=== PATIENT | male | born 1945 | race Caucasian/White ===

== ENCOUNTER 2017-09-04 14:47 | Inpatient (IN) | payer BC, MEDICARE ==
[2017-09-04] MEDS ORDERED: Sodium Chloride 0.9% 500 ML IV ONE (15:27)
[2017-09-04 15:51] LABS: BASO % 0.7 % (0.0-2.0); EOS % 0.4 % (0.0-4.0); HEMOGLOBIN 15.5 g/dL (12.0-18.0); LYMPH # 1.3 K/uL (1.0-4.3); LYMPH % 20.1 % (20.0-40.0); MEAN CELL VOLUME 87.6 fL (80.0-94.0); MEAN CORPUSCULAR HGB CONC 34.3 g/dL (33.0-37.0); MONO # 0.4 K/uL (0.0-0.8); NEUT # 4.6 K/uL (1.8-7.0); NEUT % 72.8 % (50.0-75.0); RBC 5.16 Mil/uL (4.40-5.90); RED CELL DISTRIBUTION WIDTH 13.7 % (11.5-14.5); WHITE BLOOD COUNT 6.3 K/uL (4.8-10.8)
--- NOTE | 2017-09-04 15:53 | C.PDOC ---
History Of Present Illness 71-year-old male sent to the ER by Dr. Martines for evaluation of substernal chest pain, ongoing for 1 week but worsened today. Pain has been intermittent, and associated with some SOB. He admits to having a non-productive cough for the past 1 week, was seen by PMD and given prednisone and azithromycin with minimal improvement. Patient denies radiation of pain, palpitations, diaphoresis , abdominal pain, nausea, vomiting, or diarrhea. He does admit to lower extremity edema which is chronic, but he feels it is worse today. Time Seen by Provider: 09/04/17 15:07 Chief Complaint (Nursing): Chest Pain History Per: Patient History/Exam Limitations: no limitations Onset/Duration Of Symptoms: Intermittent Episodes Current Symptoms Are (Timing): Still Present Severity: Moderate Quality: "Pain" Past Medical History Reviewed: Historical Data, Nursing Documentation, Vital Signs Vital Signs: Last Vital Signs Temp 97.2 F L 09/06/17 08:06 Pulse 113 H 09/06/17 08:06 Resp 20 09/06/17 08:06 BP 176/83 H 09/06/17 08:06 Pulse Ox 95 09/08/17 14:53 Other Surgeries: Right knee replacement, eye surgery Family History: States: No Known Family Hx - Social History Hx Alcohol Use: No Hx Substance Use: No - Immunization History Hx Tetanus Toxoid Vaccination: No Hx Influenza Vaccination: No Hx Pneumococcal Vaccination: No Review Of Systems Constitutional: Negative for: Fever, Chills Cardiovascular: Positive for: Chest Pain. Negative for: Palpitations Respiratory: Positive for: Cough, Shortness of Breath. Negative for: Sputum Gastrointestinal: Negative for: Nausea, Vomiting, Abdominal Pain, Diarrhea Musculoskeletal: Positive for: Other (LE edema) Skin: Negative for: Rash Neurological: Negative for: Weakness, Numbness, Headache, Dizziness Physical Exam - Physical Exam Appears: Well, Non-toxic, No Acute Distress, Other (Comfortable, speaking in full sentences) Skin: Normal Color, Warm, Dry Head: Normacephalic Eye(s): bilateral: Normal Inspection Oral Mucosa: Moist Neck: Supple Cardiovascular: Rhythm Regular (mildly tachycardic ) Respiratory: Normal Breath Sounds, No Accessory Muscle Use, No Rales, No Rhonchi , No Wheezing Gastrointestinal/Abdominal: Normal Exam, Bowel Sounds, Soft, No Tenderness, No Distention Extremity: Normal ROM, No Tenderness, No Deformity, Swelling (+1 pitting edema of bilateral lower extremities) Pulses: Left Dorsalis Pedis: Normal, Right Dorsalis Pedis: Normal Neurological/Psych: Oriented x3 ED Course And Treatment - Laboratory Results Result Diagrams: 09/05/17 07:43 09/05/17 07:43 ECG: Interpreted By Me, Viewed By Me ECG Rhythm: Atrial Fibrillation (at 113 bpm (RVR), with normal axis, no acute ST or T wave changes) ECG Interpretation: Abnormal O2 Sat by Pulse Oximetry: 95 (RA) Pulse Ox Interpretation: Normal - Other Rad CXR X-Ray: Viewed By Me, Read By Radiologist Interpretation: Accession No. : [id number]. Patient Name / ID : ERIC JONES / [id number]. Exam Date : 09/04/2017 16:07:37 ( Approved ). Study Comment : Sex / Age : M / 71Y. Creator : Fina Rodriguez MD. Dictator : Fina Rodriguez MD. Clinical Secretary : Cobbler Upper : Fina Rodriguez MD. Approver2 : Report Date : 09/04/2017 16:17:40. My Comment : . PROCEDURE: CHEST RADIOGRAPH, 1 VIEW. HISTORY: Chest pain. COMPARISON: None available. FINDINGS: LUNGS: The lungs are well inflated and clear. PLEURA: No pneumothorax or pleural fluid seen. CARDIOVASCULAR: Normal. OSSEOUS STRUCTURES: No significant abnormalities. VISUALIZED UPPER ABDOMEN: Normal. OTHER FINDINGS: None. IMPRESSION: No active pulmonary disease. Progress Note: Blood work, EKG, and Chest x-ray ordered and reviewed. Patient given IV NS bolus. EKG shows atrial fibrillation with RVR, new onset as per patient. Patient given Cardizem 20mg IV - (+) rate control achieved. Lovenox SQ also ordered. 5:19pm- Discussed patient with PMD Dr. Martines, confirms patient has no prior history of A Fib. Patient will be admitted to his service for new-onset atrial fibrillation with RVR. Reassessment Condition: Improved - Physician Consult Information Physician Contacted: Kem Martines Disposition Counseled Patient/Family Regarding: Studies Performed, Diagnosis - Disposition Disposition: HOSPITALIZED Disposition Time: 17:20 Condition: STABLE - Clinical Impression Clinical Impression: Atrial fibrillation with RVR, New onset atrial fibrillation, Chest pain, Dyspnea - Scribe Statement The provider has reviewed the documentation as recorded by the Lauren Driscoll Provider Attestation: All medical record entries made by the Lauren were at my direction and personally dictated by me. I have reviewed the chart and agree that the record accurately reflects my personal performance of the history, physical exam, medical decision making, and the department course for this patient. I have also personally directed, reviewed, and agree with the discharge instructions and disposition. Decision To Admit - Pt Status Changed To: Hospital Disposition Of: Inpatient - Admit Certification Admit to Inpatient:: After my assessment, the patient will require hospitalization for at least two midnights. This is because of the severity of symptoms shown, intensity of services needed, and/or the medical risk in this patient being treated as an outpatient. - InPatient: Physician Admission Certification: I certify that this patient requires 2 or more midnights of care for the following reason:: see notes - . Bed Request Type: Telemetry Admitting Physician: Kem Martines Patient Diagnosis: New onset atrial fibrillation, Atrial fibrillation with RVR
[2017-09-04 15:59] LABS: PROTHROMBIN TIME 11.4 SECONDS (9.7-12.2)
[2017-09-04 16:02] LABS: ALB/GLOB RATIO 1.1 (1.0-2.1); ALT/SGPT 35 U/L (21-72); AST/SGOT 23 U/L (17-59); BLOOD UREA NITROGEN 21 mg/dL (9-20); CALCIUM 9.1 mg/dl (8.6-10.4); GFR AFRICAN-AMERICAN > 60; GFR NON-AFRICAN AMERICAN > 60
[2017-09-04 16:14] LABS: B-TYPE NATRIURETIC PEPTIDE 198 pg/mL (0-900); CK-MB 0.71 ng/mL (0.0-3.38)
--- NOTE | 2017-09-04 16:19 | RAD ---
PROCEDURE: CHEST RADIOGRAPH, 1 VIEW HISTORY: Chest pain COMPARISON: None available. FINDINGS: LUNGS: The lungs are well inflated and clear. PLEURA: No pneumothorax or pleural fluid seen. CARDIOVASCULAR: Normal. OSSEOUS STRUCTURES: No significant abnormalities. VISUALIZED UPPER ABDOMEN: Normal. OTHER FINDINGS: None. IMPRESSION: No active pulmonary disease.
[2017-09-04] MEDS ORDERED: Sodium Chloride 0.9% 1,000 ML ONE (17:02)
[2017-09-04] MEDS ORDERED: Enoxaparin 40 mg Syringe SC STA (17:16)
[2017-09-04] MEDS ORDERED: Enoxaparin 100 mg Syringe ONE (17:50)
[2017-09-04] MEDS: Albuterol-Ipratrop 3 mg / 0.5 (3 ml) UD INH SCH ×2 (20:52→23:28)
[2017-09-04] MEDS: guaiFENesin 100 mg/5 ml Syrup UD PO PRN (21:22)
[2017-09-04] MEDS: MethylPREDNISolone 40 mg Vial IVP SCH (21:22)
--- NOTE | 2017-09-04 22:24 | CP.PCM.HP ---
History of Present Illness - History of Present Illness History of Present Illness: Chief complaints: Dizziness HPI: 71-year-old male with a history of high cholesterol, varicose vein, history of prostate cancer, dysuria. Also patient had job-related injury in 2011, and had bilateral knee replacement. Patient today came to the office with the sudden onset of palpitation, got worse , associated with chest pain, and dizziness. Patient was feeling sick for almost a week, some days more than 2 weeks he was having increasing symptoms of gradually worsening shortness of breath. He was also having increasing cough. Recently cough got worse. 5 days ago he started having sore throat, running nose, increasing cough, and also chest tightness, went to see PMD. Patient was started on Zithromax, Proventil, Singulair, and Claritin. But symptoms not getting better. He started having increasing coughing episodes. Today because his symptoms got worse he came into my office, at that time he was feeling extremely dizzy, and also unable to walk and increasing weakness. I also having increasing tiredness and fatigue noted. He was having some chest discomfort, but no real chest pain noted palpitation occasionally present. He denied any nausea, no vomiting, headache is also noted. No GI symptoms. But he was having difficulty in getting up and walking because of the weakness Past medical history: High cholesterol, varicose vein, cancer prostate, dysuria. Patient has a job-related injury in the bilateral knee joint Past surgical history: Total knee replacement Family history noncontributory Social history: Nonsmoker nonalcoholic denies any coughing years. Currently he is retired Current medications: Patient takes atorvastatin. He is also taking antibiotic Omeprazole Review of system: Patient is having some dizziness, chest tightness noted, coughing present on and off. Also mostly cough is dry. Occasional mucus noted. Fever and chills are negative. He denies any nausea and vomiting. No leg swelling On examination: Vital signs his unstable. Patient had tachycardia, heartbeat was 160. Irregular heartbeat noted. Chest bilateral minimal expiratory wheezing noted irregular heart sound. Abdomen soft Extremities bilateral 1+ pedal edema more on the left side Patient's labs reviewed Patient EKG showing evidence of atrial fibrillation with rapid ventricular rate. Blood works are negative. No evidence of any signs of infection noted at this time. Chronic enzymes are negative. Assessment and recommendation: 71-year-old male with a history of high cholesterol, varicose vein history of prostate and dysuria came to the emergency room with worsening symptoms of chest tightness palpitation and dizziness. Most likely patient is suffering from atrial fibrillation with rapid ventricular rate, the duration is unclear. Patient also has acute bronchitis. But no evidence of pneumonia and the chest x-ray. Underlying thromboembolic episode cannot be ruled out. We'll place the patient on anticoagulation. 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 rate controlled with the Cardizem short-acting, anitcoagulation DVT GI prophylaxis. We'll continue to monitor. Spoke to the family. Patient's at bedside. Patient also has acute bronchitis, suggested antibiotic including Rocephin. Will give the patient low-dose a corticosteroid. Bronchodilators. Cough medication and will follow-up the patient Present on Admission - Present on Admission Any Indicators Present on Admission: No History of DVT/PE: No History of Uncontrolled Diabetes: No Urinary Catheter: No Decubitus Ulcer Present: No Past Patient History - Infectious Disease Hx of Infectious Diseases: None - Past Medical History & Family History Past Medical History?: Yes - Past Social History Smoking Status: Never Smoked - CARDIAC Hx Cardiac Disorders: No - PULMONARY Hx Respiratory Disorders: No - NEUROLOGICAL Hx Neurological Disorder: No - HEENT Hx HEENT Problems: No - RENAL Hx Chronic Kidney Disease: No - ENDOCRINE/METABOLIC Hx Endocrine Disorders: No - HEMATOLOGICAL/ONCOLOGICAL Hx Cancer: Yes (prostate s/p radiation) - INTEGUMENTARY Hx Dermatological Problems: No - MUSCULOSKELETAL/RHEUMATOLOGICAL Hx Falls: Yes - GASTROINTESTINAL Hx Gastrointestinal Disorders: No - GENITOURINARY/GYNECOLOGICAL Hx Prostate Cancer: Yes - PSYCHIATRIC Hx Psychophysiologic Disorder: No Hx Substance Use: No - SURGICAL HISTORY Hx Surgeries: Yes Other/Comment: Right knee total replacement. bilateral glaucoma/cataract surgery - ANESTHESIA Hx Anesthesia: Yes Hx Anesthesia Reactions: No Hx Malignant Hyperthermia: No Meds Allergies/Adverse Reactions: Allergies Allergy/AdvReac Type Severity Reaction Status Date / Time No Known Allergies Allergy Verified 09/04/17 15:09 Results - Vital Signs Recent Vital Signs: Last Vital Signs Temp 98.3 F 09/04/17 20:18 Pulse 66 09/04/17 20:57 Resp 18 09/04/17 20:57 BP 113/70 09/04/17 20:18 Pulse Ox 97 09/04/17 20:18 - Labs Result Diagrams: 09/04/17 15:44 09/04/17 15:44 Labs: Laboratory Results - last 24 hr 09/04/17 09/04/17 09/04/17 15:44 15:44 15:44 WBC 6.3 RBC 5.16 Hgb 15.5 Hct 45.2 MCV 87.6 MCH 30.0 MCHC 34.3 RDW 13.7 Plt Count 217 MPV 9.0 Neut % (Auto) 72.8 Lymph % (Auto) 20.1 [place] % (Auto) 6.0 Eos % (Auto) 0.4 Baso % (Auto) 0.7 Neut # (Auto) 4.6 Lymph # (Auto) 1.3 [place] # (Auto) 0.4 Eos # (Auto) 0.0 Baso # (Auto) 0.0 PT 11.4 INR 1.0 APTT 33 Sodium 144 Potassium 4.5 Chloride 106 Carbon Dioxide 28 Anion Gap 15 BUN 21 H Creatinine 1.0 Est GFR ( Amer) > 60 Est GFR (Non-Af Amer) > 60 Random Glucose 159 H Calcium 9.1 Total Bilirubin 0.4 AST 23 ALT 35 Alkaline Phosphatase 60 Total Creatine Kinase 87 CK-MB (Mass) 0.71 Troponin I < 0.0120 NT-Pro-B Natriuret Pep 198 Total Protein 7.7 Albumin 4.0 Globulin 3.8 Albumin/Globulin Ratio 1.1
[2017-09-04 23:37] LABS: CK-MB 0.62 ng/mL (0.0-3.38)
[2017-09-05] MEDS: Albuterol-Ipratrop 3 mg / 0.5 (3 ml) UD INH SCH ×2 (07:31→16:45)
--- NOTE | 2017-09-05 07:52 | CP.PCM.PN ---
Subjective - Date & Time of Evaluation Date of Evaluation: 09/05/17 Time of Evaluation: 07:52 - Subjective Subjective: Patient is morning doing well. Still having some throat discomfort and cough. But tolerating now. Able to eat well. No dizziness. Denies any chest pain On examination: Vital signs stable. Chest good air entry regular heart sound. Nontender abdomen. Patient telemetry monitoring reviewed Showing evidence of normal sinus rhythm. EKG showing evidence of normal sinus rhythm. Old OR noted in the EKG. Echo done. Results are pending Cardiology clearance pending Assessment and recommendation: 71-year-old male with a history of prostate CA, bronchitis, high cholesterol admitted with acute new onset A. fib with rapid ventricular rate. Controlled well. Currently on Cardizem. Cardiology clearance needed. Patient may need intervention. Anticoagulation. We will discuss with cardiology. We will continue the current treatment Objective - Vital Signs/Intake and Output Vital Signs (last 24 hours): Temp Pulse Resp BP Pulse Ox 97.4 F L 74 18 132/82 98 09/05/17 07:00 09/05/17 07:00 09/05/17 07:00 09/05/17 07:00 09/05/17 07:00 Intake and Output: 09/05/17 09/05/17 06:59 18:59 Intake Total 100 Balance 100 - Medications Medications: Current Medications Albuterol/Ipratropium (Duoneb 3 Mg/0.5 Mg (3 Ml) Ud) 3 ml INH RQ8 [facility] Last Admin: 09/05/17 07:31 Dose: 3 ml Diltiazem HCl (Cardizem) 30 mg PO Q8 [facility] Enoxaparin Sodium (Lovenox) 100 mg SC Q12 [facility] Guaifenesin (Robitussin) 100 mg PO Q4H PRN PRN Reason: Cough Last Admin: 09/04/17 21:22 Dose: 100 mg Ceftriaxone Sodium 1 gm/ (Sodium Chloride) 100 mls @ 100 mls/hr IVPB Q24H [facility] PRN Reason: Protocol Last Admin: 09/04/17 21:45 Dose: 100 mls/hr Methylprednisolone (Solu-Medrol) 40 mg IVP Q12 [facility] Last Admin: 09/04/17 21:22 Dose: 40 mg Pantoprazole Sodium (Protonix Inj) 40 mg IVP DAILY [facility] Fluticasone/Salmeterol (Advair Diskus 250/50) 1 puff INH RQ12 [facility] - Labs Labs: 09/04/17 15:44 09/04/17 15:44 PT 11.4 SECONDS (9.7-12.2) 09/04/17 15:44 INR 1.0 09/04/17 15:44 APTT 33 SECONDS (21-34) 09/04/17 15:44
[2017-09-05 07:55] LABS: BASO % 0.2 % (0.0-2.0); HEMOGLOBIN 15.5 g/dL (12.0-18.0); MEAN CELL VOLUME 88.2 fL (80.0-94.0); MONO # 0.3 K/uL (0.0-0.8); MONO % 4.1 % (0.0-10.0); NEUT # 4.3 K/uL (1.8-7.0); NEUT % 65.7 % (50.0-75.0); RBC 5.15 Mil/uL (4.40-5.90); RED CELL DISTRIBUTION WIDTH 13.8 % (11.5-14.5); WHITE BLOOD COUNT 6.5 K/uL (4.8-10.8)
[2017-09-05 08:21] LABS: CK-MB 0.76 ng/mL (0.0-3.38)
[2017-09-05 08:22] LABS: ALB/GLOB RATIO 1.1 (1.0-2.1); ALBUMIN 3.8 g/dL (3.5-5.0); ALT/SGPT 21 U/L (21-72); AST/SGOT 22 U/L (17-59); BLOOD UREA NITROGEN 22 mg/dL (9-20); CALCIUM 8.8 mg/dl (8.6-10.4); GFR AFRICAN-AMERICAN > 60; GFR NON-AFRICAN AMERICAN > 60
[2017-09-05] MEDS: guaiFENesin 100 mg/5 ml Syrup UD PO PRN ×3 (09:11→21:17)
[2017-09-05] MEDS: Enoxaparin 100 mg Syringe SC SCH ×2 (09:12→21:17)
[2017-09-05] MEDS: MethylPREDNISolone 40 mg Vial IVP SCH ×2 (09:12→21:17)
--- NOTE | 2017-09-05 17:38 | CARD ---
APPROVED REPORT EXAM: Two-dimensional and M-mode echocardiogram with Doppler and color Doppler. Other Information Quality : TDSRhythm : INDICATION Dyspnea Atrial Fibrillation Chest Pain Palpitations 2D DIMENSIONS IVSd1.0 (0.7-1.1cm)LVDd4.3 (3.9-5.9cm) PWd1.2 (0.7-1.1cm)LVDs2.3 (2.5-4.0cm) FS (%) 46.8 %LVEF (%)70.0 (>50%) M-Mode DIMENSIONS Left Atrium (MM)4.19 (2.5-4.0cm)Aortic Root3.82 (2.2-3.7cm) Aortic Cusp Exc.1.94 (1.5-2.0cm) Aortic Valve AI P 1/2 [id number] Mitral Valve MV E Izzubwhv203.4cm/sMV A [place]984.9cm/sE/A ratio1.0 TDI E/Lateral E'0.0E/Medial E'0.0 Tricuspid Valve TR Peak Mgnsobls000ci/sTR Peak [id number] LEFT VENTRICLE The left ventricle is normal size. There is normal left ventricular wall thickness. The left ventricular systolic function is normal. The left ventricular ejection fraction is within the normal range. There is normal LV segmental wall motion. The left ventricular diastolic function is normal. RIGHT VENTRICLE The right ventricle is normal size. The right ventricular systolic function is normal. ATRIA The left atrium is borderline dilated. The right atrium size is normal. AORTIC VALVE The aortic valve is normal in structure. There is mild aortic regurgitation. MITRAL VALVE The mitral valve is normal in structure. There is no mitral valve regurgitation noted. TRICUSPID VALVE The tricuspid valve is normal in structure. There is mild tricuspid regurgitation. Right ventricular systolic pressure is estimated at less than 30 mmHg. PULMONIC VALVE The pulmonic valve is not well visualized. GREAT VESSELS The aortic root is mildly enlarged. The IVC is normal in size and collapses >50% with inspiration. PERICARDIAL EFFUSION There is no pericardial effusion. <Conclusion> Normal bi-ventricular function. The left atrium is borderline dilated. There is mild aortic regurgitation. There is no pericardial effusion.
[2017-09-05] MEDS: Fluticasone-Salmeterol 250-50mcg Diskus INH SCH (19:17)
--- NOTE | 2017-09-05 19:58 | CARD ---
APPROVED REPORT EKG Measurement Heart [id number] <Conclusion> Atrial fibrillation with slow ventricular response Abnormal ECG
--- NOTE | 2017-09-05 19:59 | CARD ---
APPROVED REPORT EKG Measurement Heart [id number] <Conclusion> Atrial fibrillation with rapid ventricular response with premature ventricular or aberrantly conducted complexes Abnormal ECG
--- NOTE | 2017-09-05 22:23 | CP.PCM.CON ---
History of Present Illness - History of Present Illness History of Present Illness: Patient seen and evaluated Comfortable Denies chest pain and dyspnea New Onset A Fib Meets CHADS criteria for Anticoagulation Past Patient History - Infectious Disease Hx of Infectious Diseases: None - Past Medical History & Family History Past Medical History?: Yes - Past Social History Smoking Status: Never Smoked - CARDIAC Hx Cardiac Disorders: No - PULMONARY Hx Respiratory Disorders: No - NEUROLOGICAL Hx Neurological Disorder: No - HEENT Hx HEENT Problems: No - RENAL Hx Chronic Kidney Disease: No - ENDOCRINE/METABOLIC Hx Endocrine Disorders: No - HEMATOLOGICAL/ONCOLOGICAL Hx Cancer: Yes (prostate s/p radiation) - INTEGUMENTARY Hx Dermatological Problems: No - MUSCULOSKELETAL/RHEUMATOLOGICAL Hx Falls: Yes - GASTROINTESTINAL Hx Gastrointestinal Disorders: No - GENITOURINARY/GYNECOLOGICAL Hx Prostate Cancer: Yes - PSYCHIATRIC Hx Psychophysiologic Disorder: No Hx Substance Use: No - SURGICAL HISTORY Hx Surgeries: Yes Other/Comment: Right knee total replacement. bilateral glaucoma/cataract surgery - ANESTHESIA Hx Anesthesia: Yes Hx Anesthesia Reactions: No Hx Malignant Hyperthermia: No Meds Allergies/Adverse Reactions: Allergies Allergy/AdvReac Type Severity Reaction Status Date / Time No Known Allergies Allergy Verified 09/04/17 15:09 - Medications Medications: Current Medications Albuterol/Ipratropium (Duoneb 3 Mg/0.5 Mg (3 Ml) Ud) 3 ml INH RQ8 [facility] Last Admin: 09/05/17 16:45 Dose: 3 ml Diltiazem HCl (Cardizem) 30 mg PO Q8 [facility] Last Admin: 09/05/17 21:17 Dose: 30 mg Enoxaparin Sodium (Lovenox) 100 mg SC Q12 [facility] Last Admin: 09/05/17 21:17 Dose: 100 mg Guaifenesin (Robitussin) 100 mg PO Q4H PRN PRN Reason: Cough Last Admin: 09/05/17 21:17 Dose: 100 mg Ceftriaxone Sodium 1 gm/ (Sodium Chloride) 100 mls @ 100 mls/hr IVPB Q24H [facility] PRN Reason: Protocol Last Admin: 09/05/17 21:17 Dose: 100 mls/hr Methylprednisolone (Solu-Medrol) 40 mg IVP Q12 [facility] Last Admin: 09/05/17 21:17 Dose: 40 mg Pantoprazole Sodium (Protonix Inj) 40 mg IVP DAILY [facility] Last Admin: 09/05/17 09:11 Dose: 40 mg Fluticasone/Salmeterol (Advair Diskus 250/50) 1 puff INH RQ12 [facility] Last Admin: 09/05/17 19:17 Dose: 1 puff Results - Vital Signs Recent Vital Signs: Last Vital Signs Temp 97.6 F 09/05/17 15:00 Pulse 78 09/05/17 20:34 Resp 18 09/05/17 15:00 BP 109/62 09/05/17 15:00 Pulse Ox 97 09/05/17 15:00 - Labs Result Diagrams: 09/05/17 07:43 09/05/17 07:43 Labs: Laboratory Results - last 24 hr 09/04/17 09/05/17 09/05/17 23:11 07:43 07:43 WBC 6.5 RBC 5.15 Hgb 15.5 Hct 45.5 MCV 88.2 MCH 30.0 MCHC 34.0 RDW 13.8 Plt Count 227 MPV 9.0 Neut % (Auto) 65.7 Lymph % (Auto) 30.0 [place] % (Auto) 4.1 Eos % (Auto) 0.0 Baso % (Auto) 0.2 Neut # (Auto) 4.3 Lymph # (Auto) 2.0 [place] # (Auto) 0.3 Eos # (Auto) 0.0 Baso # (Auto) 0.0 Sodium Potassium Chloride Carbon Dioxide Anion Gap BUN Creatinine Est GFR ( Amer) Est GFR (Non-Af Amer) Random Glucose Calcium Magnesium Total Bilirubin AST ALT Alkaline Phosphatase Total Creatine Kinase 75 60 CK-MB (Mass) 0.62 0.76 Troponin I < 0.0120 < 0.0120 Total Protein Albumin Globulin Albumin/Globulin Ratio TSH 3rd Generation 09/05/17 07:43 WBC RBC Hgb Hct MCV MCH MCHC RDW Plt Count MPV Neut % (Auto) Lymph % (Auto) [place] % (Auto) Eos % (Auto) Baso % (Auto) Neut # (Auto) Lymph # (Auto) [place] # (Auto) Eos # (Auto) Baso # (Auto) Sodium 141 Potassium 4.4 Chloride 106 Carbon Dioxide 25 Anion Gap 14 BUN 22 H Creatinine 0.9 Est GFR ( Amer) > 60 Est GFR (Non-Af Amer) > 60 Random Glucose 130 H Calcium 8.8 Magnesium 2.1 Total Bilirubin < 0.1 L AST 22 ALT 21 D Alkaline Phosphatase 57 Total Creatine Kinase CK-MB (Mass) Troponin I Total Protein 7.3 Albumin 3.8 Globulin 3.5 Albumin/Globulin Ratio 1.1 TSH 3rd Generation 1.47
[2017-09-06] MEDS: Albuterol-Ipratrop 3 mg / 0.5 (3 ml) UD INH SCH ×2 (00:04→07:18)
[2017-09-06 00:52] VITALS: RESP 20
[2017-09-06] MEDS: guaiFENesin 100 mg/5 ml Syrup UD PO PRN ×2 (06:11→10:31)
[2017-09-06] MEDS: Fluticasone-Salmeterol 250-50mcg Diskus INH SCH (07:18)
[2017-09-06 08:07] VITALS: BP 176/83; PULSE 113; TEMP 97.2
[2017-09-06] MEDS: Enoxaparin 100 mg Syringe SC SCH (09:13)
[2017-09-06] MEDS: MethylPREDNISolone 40 mg Vial IVP SCH (09:13)
--- NOTE | 2017-09-06 09:55 | CP.PCM.DIS ---
Provider - Provider Date of Admission: 09/04/17 17:20 Attending physician: Kem Martines MD Time Spent in preparation of Discharge (in minutes): 45 Hospital Course - Lab Results Lab Results: Most Recent Lab Values WBC 6.5 K/uL (4.8-10.8) 09/05/17 07:43 RBC 5.15 Mil/uL (4.40-5.90) 09/05/17 07:43 Hgb 15.5 g/dL (12.0-18.0) 09/05/17 07:43 Hct 45.5 % (35.0-51.0) 09/05/17 07:43 MCV 88.2 fL (80.0-94.0) 09/05/17 07:43 MCH 30.0 pg (27.0-31.0) 09/05/17 07:43 MCHC 34.0 g/dL (33.0-37.0) 09/05/17 07:43 RDW 13.8 % (11.5-14.5) 09/05/17 07:43 Plt Count 227 K/uL (130-400) 09/05/17 07:43 MPV 9.0 fL (7.2-11.7) 09/05/17 07:43 Neut % (Auto) 65.7 % (50.0-75.0) 09/05/17 07:43 Lymph % (Auto) 30.0 % (20.0-40.0) 09/05/17 07:43 [place] % (Auto) 4.1 % (0.0-10.0) 09/05/17 07:43 Eos % (Auto) 0.0 % (0.0-4.0) 09/05/17 07:43 Baso % (Auto) 0.2 % (0.0-2.0) 09/05/17 07:43 Neut # (Auto) 4.3 K/uL (1.8-7.0) 09/05/17 07:43 Lymph # (Auto) 2.0 K/uL (1.0-4.3) 09/05/17 07:43 [place] # (Auto) 0.3 K/uL (0.0-0.8) 09/05/17 07:43 Eos # (Auto) 0.0 K/uL (0.0-0.7) 09/05/17 07:43 Baso # (Auto) 0.0 K/uL (0.0-0.2) 09/05/17 07:43 PT 11.4 SECONDS (9.7-12.2) 09/04/17 15:44 INR 1.0 09/04/17 15:44 APTT 33 SECONDS (21-34) 09/04/17 15:44 Sodium 141 mmol/L (132-148) 09/05/17 07:43 Potassium 4.4 mmol/L (3.6-5.2) 09/05/17 07:43 Chloride 106 mmol/L (98-107) 09/05/17 07:43 Carbon Dioxide 25 mmol/L (22-30) 09/05/17 07:43 Anion Gap 14 (10-20) 09/05/17 07:43 BUN 22 mg/dL (9-20) H 09/05/17 07:43 Creatinine 0.9 mg/dL (0.8-1.5) 09/05/17 07:43 Est GFR ( Amer) > 60 09/05/17 07:43 Est GFR (Non-Af Amer) > 60 09/05/17 07:43 Random Glucose 130 mg/dL (75-110) H 09/05/17 07:43 Calcium 8.8 mg/dl (8.6-10.4) 09/05/17 07:43 Magnesium 2.1 mg/dL (1.6-2.3) 09/05/17 07:43 Total Bilirubin < 0.1 mg/dL (0.2-1.3) L 09/05/17 07:43 AST 22 U/L (17-59) 09/05/17 07:43 ALT 21 U/L (21-72) D 09/05/17 07:43 Alkaline Phosphatase 57 U/L (38-126) 09/05/17 07:43 Total Creatine Kinase 60 U/L (55-170) 09/05/17 07:43 CK-MB (Mass) 0.76 ng/mL (0.0-3.38) 09/05/17 07:43 Troponin I < 0.0120 ng/mL (0.00-0.120) 09/05/17 07:43 NT-Pro-B Natriuret Pep 198 pg/mL (0-900) 09/04/17 15:44 Total Protein 7.3 g/dL (6.3-8.3) 09/05/17 07:43 Albumin 3.8 g/dL (3.5-5.0) 09/05/17 07:43 Globulin 3.5 gm/dL (2.2-3.9) 09/05/17 07:43 Albumin/Globulin Ratio 1.1 (1.0-2.1) 09/05/17 07:43 TSH 3rd Generation 1.47 mIU/L (0.46-4.68) 09/05/17 07:43 - Hospital Course Hospital Course: Chief complaints: Dizziness HPI: 71-year-old male with a history of high cholesterol, varicose vein, history of prostate cancer, dysuria. Also patient had job-related injury in 2011, and had bilateral knee replacement. Patient today came to the office with the sudden onset of palpitation, got worse , associated with chest pain, and dizziness. Patient was feeling sick for almost a week, some days more than 2 weeks he was having increasing symptoms of gradually worsening shortness of breath. He was also having increasing cough. Recently cough got worse. 5 days ago he started having sore throat, running nose, increasing cough, and also chest tightness, went to see PMD. Patient was started on Zithromax, Proventil, Singulair, and Claritin. But symptoms not getting better. He started having increasing coughing episodes. Today because his symptoms got worse he came into my office, at that time he was feeling extremely dizzy, and also unable to walk and increasing weakness. I also having increasing tiredness and fatigue noted. He was having some chest discomfort, but no real chest pain noted palpitation occasionally present. He denied any nausea, no vomiting, headache is also noted. No GI symptoms. But he was having difficulty in getting up and walking because of the weakness Past medical history: High cholesterol, varicose vein, cancer prostate, dysuria. Patient has a job-related injury in the bilateral knee joint Past surgical history: Total knee replacement Family history noncontributory Social history: Nonsmoker nonalcoholic denies any coughing years. Currently he is retired Current medications: Patient takes atorvastatin. He is also taking antibiotic Omeprazole Review of system: Patient is having some dizziness, chest tightness noted, coughing present on and off. Also mostly cough is dry. Occasional mucus noted. Fever and chills are negative. He denies any nausea and vomiting. No leg swelling On examination: Vital signs his unstable. Patient had tachycardia, heartbeat was 160. Irregular heartbeat noted. Chest bilateral minimal expiratory wheezing noted irregular heart sound. Abdomen soft Extremities bilateral 1+ pedal edema more on the left side Patient's labs reviewed Patient EKG showing evidence of atrial fibrillation with rapid ventricular rate. Blood works are negative. No evidence of any signs of infection noted at this time. Chronic enzymes are negative. Assessment and recommendation: 71-year-old male with a history of high cholesterol, varicose vein history of prostate and dysuria came to the emergency room with worsening symptoms of chest tightness palpitation and dizziness. Most likely patient is suffering from atrial fibrillation with rapid ventricular rate, the duration is unclear. Patient also has acute bronchitis. But no evidence of pneumonia and the chest x-ray. Underlying thromboembolic episode cannot be ruled out. We'll place the patient on anticoagulation. Spoke to the medical billing service. rate controlled with the Cardizem short-acting, anitcoagulation DVT GI prophylaxis. We'll continue to monitor. Spoke to the family. Patient's at bedside. Patient also has acute bronchitis, suggested antibiotic including Rocephin. Will give the patient low-dose a corticosteroid. Bronchodilators. Cough medication and will follow-up the patient Patient is now comfortable. Not in any distress. Vital signs no temperature is 97.2 pulse 113 blood pressure 176/83. Chest good air entry regular heart sounds nontender abdominal pedal edema [employer] alert awake oriented 3 no functional neurological deficit Course in the hospital: Labs reviewed Patient has a normal TSH. BUN/creatinine is normal. CBC is normal. Echocardiogram showing evidence of normal ejection fraction. Patient now having mild tachycardia, most mostly sinus rhythm. I spoke to the medical billing service. Given the patient's a high chads score patient will need anticoagulation. We will start the patient on Eliquis 500 mg 5 mg twice a day, will also start the patient on metoprolol. And also Cardizem. Outpatient follow-up. We will discuss with family. We will follow the patient. Patient also will continue bronchodilators, home medications for his bronchitis. Discharge Plan - Follow Up Plan Condition: GOOD Disposition: HOME/ ROUTINE
--- NOTE | 2017-09-07 12:15 | CARD ---
APPROVED REPORT EKG Measurement Heart [id number] <Conclusion> Normal sinus rhythm Possible Anterolateral infarct, age undetermined Abnormal ECG
[2017-09-08 14:53] VITALS: O2SAT 95
== END 2017-09-06 11:38 | disposition home or self-care (01) | DRG 202 ==
LOC: C.ER 14:47 → C.9E 17:20 → C.5S 19:17
PROVIDERS: ADMIT Internal Medicine; ATTEND Internal Medicine
DX: J20.9 Acute bronchitis, unspecified (principal); I74.9 Embolism and thrombosis of unspecified artery; I48.91 Unspecified atrial fibrillation; Z96.653 Presence of artificial knee joint, bilateral; E78.00 Pure hypercholesterolemia, unspecified; Z85.46 Personal history of malignant neoplasm of prostate

== ENCOUNTER 2018-08-29 12:25 | Emergency (ER) | payer MEDICARE ==
[2018-08-29 12:34] VITALS: RESP 18
[2018-08-29] MEDS ORDERED: Sodium Chloride 0.9% 1,000 ML IV ONE (13:28)
[2018-08-29] MEDS ORDERED: DiphenhydrAMINE 50 mg/ml Inj IVP STA (13:30)
--- NOTE | 2018-08-29 13:33 | C.PDOC ---
History Of Present Illness 72 year old male patient presents to the ER complaining of dizziness for x3 days. Associated symptoms includes headache. Patient denies room-spinning dizziness, chest pain, neck pain, back pain, LOC, fall, trauma, numbness or tingling of extremities. He notes he had prior symptoms but did not take any medication. Time Seen by Provider: 08/29/18 13:00 Chief Complaint (Nursing): Dizziness/Lightheaded History Per: Patient History/Exam Limitations: no limitations Onset/Duration Of Symptoms: Days (x3) Current Symptoms Are (Timing): Still Present Activity At Onset Of Symptoms: Change In Head Position Past Medical History Reviewed: Historical Data, Nursing Documentation, Vital Signs Vital Signs: Last Vital Signs Temp 97.9 F 08/29/18 12:30 Pulse 68 08/29/18 12:30 Resp 18 08/29/18 12:30 BP 138/86 08/29/18 12:30 Pulse Ox 99 08/29/18 12:30 Primary Care Provider: Kem Martines Family History: States: No Known Family Hx - Social History Hx Alcohol Use: No Hx Substance Use: No - Immunization History Hx Tetanus Toxoid Vaccination: No Hx Influenza Vaccination: No Hx Pneumococcal Vaccination: No Review Of Systems Except As Marked, All Systems Reviewed And Found Negative. Constitutional: Negative for: Other (fall, trauma, LOC) Cardiovascular: Negative for: Chest Pain Neurological: Positive for: Headache, Dizziness. Negative for: Weakness, Numbness, Other (vertigo ) Physical Exam - Physical Exam Appears: Non-toxic, No Acute Distress Skin: Warm, Dry, No Rash Head: Atraumatic, Normacephalic Eye(s): bilateral: Normal Inspection, PERRL, EOMI Ear(s): Bilateral: Normal Oral Mucosa: Moist Throat: Normal, No Erythema Neck: Normal ROM, Trachea Midline, Supple Chest: Symmetrical, No Deformity Cardiovascular: Rhythm Regular Respiratory: Normal Breath Sounds, No Rales, No Rhonchi, No Wheezing Gastrointestinal/Abdominal: Soft, No Tenderness Back: No CVA Tenderness, No Vertebral Tenderness Extremity: Normal ROM (x4), No Swelling Extremity: Bilateral: Normal Color And Temperature Neurological/Psych: Oriented x3, Normal Speech, Normal Cognition, Normal Cranial Nerves, Normal Motor, Normal Sensation Gait: Steady ED Course And Treatment - Laboratory Results Result Diagrams: 08/29/18 13:44 08/29/18 13:44 O2 Sat by Pulse Oximetry: 99 (RA) Pulse Ox Interpretation: Normal Medical Decision Making Medical Decision Making: plans: -- labs -- EKG -- Ct head -- CXR -- IV fluids -- benadryl -- reglan -- tylenol The case was discussed with dr. Martines who states that the patient is on Eliquis and has been taking motrin and naproxen for pain and noticed some dark stools. Stool HEmoccult ordered. Results were discussed with Bobbi and agrees to discharge the patient. On re-exam, the patient reports improvement of symptoms. Lungs are CTA, heart is RRR, abdomen is soft, non-tender and tolerating PO well. Pt is ambulatory in the ED with steady gait. Follow up with the medical doctor within 1-2 days. Return if worsened. Disposition - Disposition Referrals: Kem Martines MD [Staff Provider] - Disposition: HOME/ ROUTINE Disposition Time: 17:05 Condition: GOOD Additional Instructions: Follow up with the medical doctor within 1-2 days. Return if worsened. Prescriptions: Meclizine HCl 25 mg PO TID PRN #25 tablet PRN Reason: Dizziness Metoclopramide [Reglan] 1 tab PO TID PRN #25 tab PRN Reason: Nausea/Vomiting Instructions: Vertigo (a Type of Dizziness) (DC) Forms: [employer] ([place]) - Clinical Impression Clinical Impression: Dizziness - PA / [employer] / Resident Statement ASH has reviewed & agrees with the documentation as recorded. - Scribe Statement The provider has reviewed the documentation as recorded by the Lauren Roach Do All medical record entries made by the Scribe were at my direction and personally dictated by me. I have reviewed the chart and agree that the record accurately reflects my personal performance of the history, physical exam, medical decision making, and the department course for this patient. I have also personally directed, reviewed, and agree with the discharge instructions and disposition.
[2018-08-29] MEDS ORDERED: DiphenhydrAMINE 50 mg/ml Inj ONE (13:41)
[2018-08-29] MEDS ORDERED: Sodium Chloride 0.9% 1,000 ML ONE (13:41)
[2018-08-29 13:54] LABS: BASO % 0.5 % (0.0-2.0); EOS # 0.1 K/uL (0.0-0.7); EOS % 1.9 % (0.0-4.0); HEMOGLOBIN 15.9 g/dL (12.0-18.0); LYMPH # 2.1 K/uL (1.0-4.3); LYMPH % 36.5 % (20.0-40.0); MEAN CELL VOLUME 86.5 fL (80.0-94.0); MEAN CORPUSCULAR HEMOGLOBIN 29.8 pg (27.0-31.0); MEAN CORPUSCULAR HGB CONC 34.4 g/dL (33.0-37.0); MEAN PLATELET VOLUME 9.4 fL (7.2-11.7); MONO # 0.6 K/uL (0.0-0.8); MONO % 9.7 % (0.0-10.0); NEUT % 51.4 % (50.0-75.0); RBC 5.35 Mil/uL (4.40-5.90); RED CELL DISTRIBUTION WIDTH 13.7 % (11.5-14.5); WHITE BLOOD COUNT 5.9 K/uL (4.8-10.8)
[2018-08-29 14:16] LABS: ALB/GLOB RATIO 1.1 (1.0-2.1); ALBUMIN 4.2 g/dL (3.5-5.0); ALT/SGPT 27 U/L (21-72); AST/SGOT 34 U/L (17-59); BLOOD UREA NITROGEN 20 mg/dL (9-20); CALCIUM 9.6 mg/dl (8.6-10.4); GFR NON-AFRICAN AMERICAN > 60
--- NOTE | 2018-08-29 14:41 | RAD ---
Date of service: 08/29/2018 PROCEDURE: CHEST RADIOGRAPH, 1 VIEW HISTORY: dizziness, COMPARISON: 09/04/2017 FINDINGS: LUNGS: Clear. PLEURA: No pneumothorax or pleural fluid seen. CARDIOVASCULAR: No aortic atherosclerotic calcification present. Normal. OSSEOUS STRUCTURES: No significant abnormalities. VISUALIZED UPPER ABDOMEN: Normal. OTHER FINDINGS: None. IMPRESSION: No active disease.
[2018-08-29] MEDS ORDERED: Sodium Chloride 0.9% 500 ML IV ONE (15:20)
--- NOTE | 2018-08-29 15:51 | CT ---
Date of service: 08/29/2018 PROCEDURE: CT HEAD WITHOUT CONTRAST. HISTORY: Headache, dizziness, R/O Bleed COMPARISON: None available. TECHNIQUE: Axial computed tomography images were obtained through the head/brain without intravenous contrast. Radiation dose: Total exam DLP = 1123.11 mGy-cm. This CT exam was performed using one or more of the following dose reduction techniques: Automated exposure control, adjustment of the mA and/or kV according to patient size, and/or use of iterative reconstruction technique. FINDINGS: HEMORRHAGE: No acute parenchymal, subarachnoid or extra-axial hemorrhage BRAIN: Mild diffuse/confluent chronic periventricular white matter ischemic changes. Moderate generalized volume loss. VENTRICLES: No obstructive hydrocephalus. CALVARIUM: No acute calvarial fractures. PARANASAL SINUSES: Unremarkable as visualized. No significant inflammatory changes. MASTOID AIR CELLS: Unremarkable as visualized. No inflammatory changes. OTHER FINDINGS: None. IMPRESSION: No acute intracranial hemorrhage. Mild chronic white matter ischemic changes. Moderate generalized volume loss.
[2018-08-29 17:21] VITALS: BP 130/79; PULSE 71; TEMP 98.1
[2018-08-29 18:48] VITALS: O2SAT 99
== END 2018-08-29 17:28 | disposition home or self-care (01) ==
LOC: C.ER 12:25
DX: R42 Dizziness and giddiness (principal)
CPT/HCPCS: 70450; 71045; 80053; 82948; 84484; 85025; 96361; 96374; 96375; 99285; G0328; J1200; J2765; J7030; J7040